=== PATIENT | female | born 1980 | race African-American/Black ===

== ENCOUNTER 2017-01-16 02:06 | Emergency (ER) | payer OTHER ==
[~2017-01-16] VITALS: Ht 175.3 cm; Wt 78.9 kg
[~2017-01-16 02:06] MED LIST: TRMCR180 EX
[2017-01-16 02:10] VITALS: TEMP 36.9; Ht 175.3 cm; Wt 78.9 kg
[2017-01-16] MEDS ORDERED: TROLAMINE SALICYLATE 10% CRM 255 APPLN/85 GM TUBE EXT STA (02:20)
[2017-01-16] MEDS ORDERED: KETOROLAC TROMETHAMINE 60 MG/2 ML VIAL IM STA (02:20)
[2017-01-16] MEDS ORDERED: BACLOFEN 10 MG TAB PO ONE (02:30)
--- NOTE | 2017-01-16 02:38 | EMERGENCY ROOM VISIT NOTE ---
History First contact with patient: 02:10 Chief Complaint: BACK PAIN Stated Complaint: PULL MUSCLE IN MY BACK,PAIN SWELLING History of Present Illness The patient is a 36 year old female who presents to the Emergency Room with complaints of left upper back pain after twisting and feeling a pull in the area. Patient tried Motrin with some improvement of symptoms. Pain currently 6 out of 10 worse with movement and better with rest. Patient denies numbness, tingling, spinal pain, fall, trauma, radiating pain, chest pain, fevers, cough, congestion. No direct injury to the area. She's had back pain before. Review of Systems See HPI for pertinent positives & negatives. A total of 10 systems reviewed and were otherwise negative. Past Medical/Surgical History Surgical Problems: (1) H/O section Family History No pertinent family history Social History Smoking Status: Former Smoker Drug Use: none Marital Status: single Housing Status: lives with family Occupation Status: employed Current/Historical Medications Scheduled Triamcinolone Acet (Aristocort 0.1%), 1 APPLN EX BID Physical Exam Vital Signs Date Time Temp Pulse Resp B/P (MAP) Pulse Ox O2 Delivery O2 Flow Rate FiO2 01/16/17 02:10 36.9 91 18 123/80 99 Room Air Physical Exam VITALS: Vitals are noted on the nurse's note and reviewed by myself. Vital signs stable. GENERAL: Pleasant female, in no acute distress, nondiaphoretic, well-developed well-nourished. SKIN: Capillary reflex less than 2 seconds. HEENT: Normocephalic. PERRLA. EOMI. Nares patent. Mucous membranes moist. Neck is supple without nuchal rigidity. HEART: Regular rate and rhythm without murmurs gallops or rubs. LUNGS: Clear to auscultation bilaterally without wheezes, rales or rhonchi. No retractions or accessory muscle use. ABDOMEN: Positive bowel sounds x 4. Normal tympanic percussion. Soft, nontender, without masses or organomegaly. Gilman sign negative. No guarding or rebound tenderness. MUSCULOSKELETAL: No gross musculoskeletal defects. No pedal edema. No calf tenderness. No thoracic or lumbar spinal tenderness. Left upper backup sawyer to palpation easily reproducing symptoms. NEURO: Patient was alert and oriented to person place and time. Normal sensation to light and sharp touch. No focal neurological deficits. Medical Decision & Procedures ED Course Prior records/ancillary studies reviewed. Triage Nursing notes reviewed. The patient's history was concerning for back pain. Differential diagnosis: Etiologies such as musculoskeletal, disc herniation, fracture, aortic disease, metastatic disease, cord compression, discitis, infection, renal colic, gastrointestinal, acute exacerbation of chronic back pain, sciatica, cauda equina, as well as others were entertained. Physical findings: As above. No focal neurologic findings noted. ER treatment provided: Toradol, Myoflex cream, baclofen On reassessment the patient felt better. Diagnostics interpreted by me: Deferred This appears to be consistent with upper back pain mostly for muscle pull. Patient's pain started instantly after she turned. The pain is worse with movement and better with rest. No trauma. No direct injury. No radiating pain. Patient was advised to stretch the area out and try anti-inflammatories for her symptoms. She is advised to follow-up with family care in a few days or here in the ER sooner for severe pain, numbness, tingling, inability to walk , worsening signs or symptoms or as needed. The patient's physical examination and detailed history did not reveal any red flags for back pain such as those listed in the differential diagnosis. Therefore advanced diagnostics and consultations were felt to be unwarranted. By the evaluation outlined above emergent etiologies such as fracture, aortic disease, metastatic disease, infection, renal colic, gastrointestinal, cord compression, cauda equina, as well as others were deemed relatively unlikely. The pt informed about the findings as listed above. All questions were answered and pleased with the treatment. Return instructions were outlined and the patient was discharged in stable condition. Outpatient prescription management: Baclofen Referral: The patient was referred back to primary care physician for follow-up in 2 to 3 days for a recheck of the current condition. Medical Decision As above Medication Reconcilliation Current Medication List: was personally reviewed by me Blood Pressure Screening Patient's blood pressure: Normal blood pressure Impression Primary Impression: Upper back pain on left side Departure Information Dispostion Home / Self-Care Condition GOOD Referrals No Doctor, Assigned (PCP) Patient Instructions My [facility] Additional Instructions Baclofen 10 m tablet every 8 hours as needed for muscle spasm. Ibuprofen(Motrin, Advil) may be used for fever or pain. Use 600mg every six hours as needed. Take with food. Avoid using more than 2400mg in a 24 hour period. Do not use 2400mg per day for more than three consecutive days without physician direction. Prolonged inappropriate use can lead to stomach upset or ulcers. This medication can be taken if you need to drive, work, or perform activities which may be dangerous when taking narcotic pain medication. (AND/OR) Acetaminophen(Tylenol) may be used for fever or pain. Use 1000mg every six hours as needed. Avoid using more than 3000mg in a 24 hour period. This medication can be taken if you need to drive, work, or perform activities which may be dangerous when taking narcotic pain medication. Rest and avoid heavy lifting until your symptoms resolve and then gradually return to full activity. A good rule of thumb is if it hurts your back to perform a certain activity, then it should be avoided until you are healthy again. A heating pad, warm compresses, or a hot shower may help with tight muscles and can be done several times a day as needed. Continue current medications. Return to the ER immediately for any numbness, tingling, severe pain, loss of control of your bowels or bladder, inability to walk, or as needed. Follow up with your primary care physician/orthopedics spine within 3-5 days for a recheck of your current condition.
[2017-01-16] MEDS ORDERED: BACL1TAB PO (02:39)
[2017-01-16 02:48] VITALS: BP 124/84; PULSE 84; O2SAT 99
== END 2017-01-16 02:49 | disposition home or self-care (01) ==
LOC: C.EDB 02:08
DX: M54.9 Dorsalgia, unspecified (principal); X50.1XXA Overexertion from prolonged static or awkward postures, initial encounter; Z87.891 Personal history of nicotine dependence